=== PATIENT | female | born 1965 | race Asian ===

== ENCOUNTER 2024-04-27 06:26 | Day surgery (SDC) | payer OTHER, SELFPAY ==
[2024-04-21 07:35] VITALS: BMI 25.2
[2024-04-21 08:51] LABS: Hematocrit 38.2 % (37.0-47.0); Hemoglobin 13.1 g/dL (12.0-16.0); Mean Corp Hgb Conc. 34.3 g/dL (33.0-37.0); Mean Corpuscular Hgb 30.5 pg (27.0-31.0); Platelet Count 224 10^3/uL (130-400); Red Blood Cell Count 4.29 10^6/uL (4.20-5.40); Red Cell Dist. Width 12.2 % (11.5-14.5); White Blood Cell Count 5.7 10^3/uL (4.8-10.8)
[2024-04-27] VITALS (9 sets, daily range): BP systolic 110–148; BP diastolic 48–77; BMI 25.2
[2024-04-27] MEDS: NORMOSOL-R/PLASMALYTE-A 1000 IV (12:15)
[2024-04-27] MEDS: DILAUDID 0.25 MG IV (15:36)
== END 2024-04-27 16:40 | disposition home or self-care (01) ==
LOC: SDS 06:26
PROVIDERS: ATTENDING PHYSICIAN Otolaryngology
PROC: 0CBT8ZX Excision of Right Vocal Cord, Via Natural or Artificial Opening Endoscopic, Diagnostic (ICD-10-PCS; 2024-04-27)
DX: J38.1 Polyp of vocal cord and larynx (principal)
CPT/HCPCS: 31536; 88305; 85027; 93005